=== PATIENT | female | born 1985 | race Caucasian/White ===

== ENCOUNTER → 2019-06-05 | Outpatient (CLI) | payer BC ==
--- NOTE | 2019-06-05 09:13 | MM ---
Reason for exam: screening (asymptomatic). Baseline mammogram. History: Took hormonal contraceptives for 7 years beginning at age 22. Physical Findings: Nurse did not find any significant physical abnormalities on exam. MG 3D Screening Mammo W/Cad Bilateral CC and MLO view(s) were taken. The breast tissue is heterogeneously dense. This may lower the sensitivity of mammography. There are round, oval left masses x 2-3 in the left lower outer quadrant 7cm from nipple. No suspicious abnormality on the right. These results were verbally communicated with the patient and result sheet given to the patient on 06/05/19. ASSESSMENT: Incomplete: need additional imaging evaluation, BI-RAD 0 RECOMMENDATION: Ultrasound.
--- NOTE | 2019-06-05 09:17 | USB ---
Reason for exam: additional evaluation requested from abnormal screening. History: Took hormonal contraceptives for 7 years beginning at age 22. Physical Findings: Breast exam preformed at baseline screening. US Breast Workup Limited LT Left limited breast ultrasound including focal area of concern, retroareolar and axilla demonstrates several mixed lesions at 4 o'clock measuring 0.4 x 0.3 x 0.3cm, 0.6 x 0.5 x 0.4cm, 0.8 x 0.5 x 0.7cm and 0.9 x 0.7 x 0.8cm. All cluster together. One biopsy recommended with radiology/pathology correlation post biopsy to address further recommendations. These results were verbally communicated with the patient and result sheet given to the patient on 06/05/19. ASSESSMENT: Suspicious, BI-RAD 4 RECOMMENDATION: Ultrasound core biopsy of the left breast. Called Dr Betts's office with mammographic findings. Patient works with Dr. Glaser and will talk to her to schedule biopsy. PRELIMINARY REPORT CALLED AND FAXED TO DR. GLASER ON 06/05/19.
== END | disposition home or self-care (01) ==
LOC: RADMAMWWP 07:30
PROVIDERS: ATTEND Obstetrics & Gynecology
DX: Z12.31 Encounter for screening mammogram for malignant neoplasm of breast (principal); R92.8 Other abnormal and inconclusive findings on diagnostic imaging of breast
CPT/HCPCS: 77063; 77067

== ENCOUNTER → 2022-05-17 | Outpatient (CLI) | payer OTHER ==
--- NOTE | 2022-05-17 11:31 | US ---
EXAMINATION TYPE: US kidneys/renal and bladder DATE OF EXAM: 05/17/2022 COMPARISON: NONE CLINICAL HISTORY: R31.1 MICROHEMATURIA. microscopic hematuria with no symptoms EXAM MEASUREMENTS: Right Kidney: 9.5 x 4.2 x 4.5 cm Left Kidney: 9.5 x 4.8 x 5.2 cm Right Kidney: No hydronephrosis or masses seen Left Kidney: No hydronephrosis or masses seen Bladder: wnl Bilateral Jets seen: yes There is no evidence for hydronephrosis at this point in time. No nephrolithiasis is seen. No alexandru s are identified. The urinary bladder is adequately distended. Bilateral ureteral jets are seen. IMPRESSION: Unremarkable study. If symptoms of hematuria persist further investigation with CT imagin g would be warranted.
== END | disposition home or self-care (01) ==
LOC: RADUSWWP 10:53
PROVIDERS: ATTEND Urology
DX: N32.89 Other specified disorders of bladder (principal)
CPT/HCPCS: 76770